=== PATIENT | female | born 1940 | race Caucasian/White ===

== ENCOUNTER 2016-11-16 15:48 | Inpatient (IN) | payer OTHER ==
--- NOTE | ~2016-11-16 | HP ---
History And Physical [address] [place]. [address] NAME: CAYETANO COY : 42 STATUS : ADM IN [facility]#: [id number] AGE: 76 ADM/REG DATE : 11/16/16 MR#: [id number] REPORT SERV DATE: 11/17/16 DICTATED BY: DORIS GARCIA DATE: 11/16/16 REPORT STATUS : Draft TRANSCRIBED BY: SARAN DATE: 11/16/16 DATE OF ADMISSION: 11/16/2016 CHIEF COMPLAINT: Weakness getting worse over the last three weeks, and she fell three times and confusion, but it is not bad as last time and she was here with hypercapnic respiratory failure. HISTORY OF PRESENT ILLNESS: This is a 76-year-old female patient who does have severe COPD with oxygen dependent, had experience worsening weakness and balance. She fell three times last week and family noticed that she has been having balance issue and getting weaker and she does not want to eat for the last couple of days and they brought the patient in the emergency room to get evaluated. She was evaluated in the emergency room with ABG showed pH of 7.25, pCO2 was 155.7, and PO2 was 86.2. Bicarb was 66.7. She was put on the BiPAP and Hospitalist Service was called for inpatient care. She is currently on BiPAP, and she is alert, awake. She is talking through the BiPAP mask and the patient has and daughter, who is very supportive at the bedside. There is no cough or fevers. No any acute illness noted. She still smokes about one and half pack and two pack a day and she is to drink daily wine at night. The last drink was noted to be about a week ago. The patient does not use any scheduled inhaler. She uses nebulizer as needed, but she does not use the nebulizer that much either. 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 REVIEW OF SYSTEMS: All systems reviewed and negative. PAST MEDICAL HISTORY: 1. COPD. 2. Cor pulmonale. 3. Tobacco abuse. 4. Depression. 5. Hypertension. 6. Hyperlipidemia. PAST SURGICAL HISTORY: She had a right foot surgery. MEDICATIONS AT HOME: 1. DuoNeb supposed to use it, but she refused it. 2. ProAir as needed. History And Physical [address] [place]. [address] NAME: CAYETANO COY : 42 STATUS : ADM IN [facility]#: [id number] AGE: 76 ADM/REG DATE : 11/16/16 MR#: [id number] REPORT SERV DATE: 11/17/16 DICTATED BY: DORIS GARCIA DATE: 11/16/16 REPORT STATUS : Draft TRANSCRIBED BY: MODL DATE: 11/16/16 3. Coreg 25 mg twice a day. 4. Celexa 40 mg once a day. 5. Advil 400 mg six hours as needed. 6. Imodium 2 mg once a day. 7. Prednisone 20 mg once a day as needed for short of breath. 8. Artificial Tears. ALLERGIES: NONE. SOCIAL HISTORY: She lives with her . She does not work. She is a lifelong smoker. She uses a glass of wine every night. Denies any drug use. She goes to her computer and playing words game with her friends and that is very big eli for her life. She does not have any walking aids. She has no problem with it. PHYSICAL EXAMINATION: VITAL SIGNS: Blood pressure is 142/62, pulse is 87, temperature is 97.7, respiratory rate is 20, currently she is on BiPAP. GENERAL APPEARANCE: She is on BiPAP. She is taking through the BiPAP. She is alert and awake. She is following commands. HEENT: Pupils are equal and her eyes are very congested. CHEST: Has a very decreased aeration. She does have a barrel chest. Has a tight ring sound, even has crackles on both bases. CARDIOVASCULAR: Cannot hear heart sound due to the BiPAP sound. Has had regular rhythm and rate though. ABDOMEN: Bowel sounds are present, soft. EXTREMITIES: She has a purple tips of the toes on the right side, but pulses are palpable, it is weak. LABORATORY DATA: Laboratory showed sodium of 143, potassium 4.5, BUN 15, creatinine 0.46. WBC 8.4, hemoglobin 11.9, hematocrit 41.6, platelets 141, MCV was 111.8, BNP was 298.6. Chest x-ray showed some vascular congestion on both lower lobe. Electrocardiogram showed normal sinus rhythm. ASSESSMENT AND PLAN: 1. Acute on chronic hypercapnic respiratory failure. 2. Chronic obstructive pulmonary disease exacerbation. 3. Acute on chronic cor pulmonale. 4. Tobacco abuse. 5. Alcohol abuse. The patient will be admitted to hospital on continuous BiPAP. Currently, we do not have any IMCU bed availability. The patient's family is willing to stay with her to assist her BiPAP use all night. I explained the patient that she needs to be on a BiPAP at least 24 hours continuously, and she agrees that she will cooperate the nursing care. History And Physical [address] [address] NAME: CAYETANO COY : 42 STATUS : ADM IN PAT#: [id number] AGE: 76 ADM/REG DATE : 11/16/16 MR#: [id number] REPORT SERV DATE: 11/17/16 DICTATED BY: DORIS GARCIA DATE: 11/16/16 REPORT STATUS : Draft TRANSCRIBED BY: SARAN DATE: 11/16/16 We are going to put her on the low-dose Bumex drip and an IV steroid, bronchodilator, continuous BiPAP will be the most important treatment for her hypercapnic respiratory failure. The patient is DNR and DNI and it is confirmed with the patient and the and the daughter. EKL/MODL Doris Garcia M.D. / [id number] CC: Martina Barahona M.D.
--- NOTE | ~2016-11-16 | DS ---
Discharge Summary [id number] [place]. [address] NAME: CAYETANO COY : 42 STATUS : DIS IN PAT#: [id number] AGE: 76 ADM/REG DATE : 11/16/16 MR#: [id number] REPORT SERV DATE: 11/21/16 DICTATED BY: SARABJIT BALBUENA DATE: 11/20/16 REPORT STATUS : Draft TRANSCRIBED BY: SARAN DATE: 11/20/16 ADMISSION DATE: 11/16/2016 DISCHARGE DATE: 11/20/2016 CONSULTING PHYSICIAN: Vannessa Vee M.D., for Pulmonary. PROCEDURES DONE: 1. On 11/17/2016 chest x-ray: No acute process. No change in cardiomegaly. 2. Chest x-ray, 11/16/2016: Cardiomegaly stable. Lungs clear. REASON FOR ADMISSION: Increasing weakness with confusion. HISTORY OF HOSPITAL STAY: A 76-year-old white female with past medical history of COPD, cor pulmonale, depression, hypertension, hyperlipidemia, tobacco abuse, presenting with weakness, and increasing confusion. The patient was admitted for further evaluation and treatment of increasing weakness and confusion. The patient was found to have a pCO2 of 155.7. In addition, her PaO2 was 86.2. The patient is having encephalopathy secondary to acute on chronic hypercapnic respiratory failure secondary to COPD exacerbation. The patient was immediately put in BiPAP and IV steroids and breathing treatments and was sent to the IMCU. Pulmonary was consulted for further evaluation of her acute on chronic hypercapnic respiratory failure. The patient was initially put on BiPAP. Pulmonary recommended continue BiPAP until her mental status improves which will be indicated by her baseline pCO2. More importantly, the patient is very noncompliant regarding her treatment at home as well as continuing to smoke. Pulmonary recommended palliative care versus hospice. Unfortunately, the family members were not available at that time. I personally discussed with the regarding palliative and hospice care. The patient will continue to smoke despite efforts of convincing the patient not to. Eventually, the and the patient have agreed that the best option is to go for hospice/palliative care since the patient will smoke anyway. The requested [facility]. DISPOSITION: The patient is feeling fine. No complaints. The patient will be referred to [facility]. ACTIVITY: As tolerated. DIET: Regular. INSTRUCTION UPON DISCHARGE: None. The patient will be followed by [facility]. MEDICATIONS UPON DISCHARGE: Management as per [facility]. DIAGNOSES UPON DISCHARGE: 1. Weakness and confusion secondary to acute on chronic hypercapnic respiratory failure. 2. Acute on chronic hypercapnic respiratory failure. 3. Chronic obstructive pulmonary disease. 4. Acute on chronic cor pulmonale. Discharge Summary [address] [address] NAME: CAYETANO COY : 42 STATUS : DIS IN PAT#: [id number] AGE: 76 ADM/REG DATE : 11/16/16 MR#: [id number] REPORT SERV DATE: 11/21/16 DICTATED BY: SARABJIT BALBUENA DATE: 11/20/16 REPORT STATUS : Draft TRANSCRIBED BY: SARAN DATE: 11/20/16 5. Tobacco abuse. FBMarie/SARAN Sarabjit Balbuena MD / [id number] CC: MD Yohan Bonds MD
--- NOTE | ~2016-11-16 | CN ---
Consultation Report [id number]. [address] NAME: CAYETANO COY : 42 STATUS : ADM IN [facility]#: [id number] AGE: 76 ADM/REG DATE : 11/16/16 MR#: [id number] REPORT SERV DATE: 11/17/16 DICTATED BY: VANNESSA FERRER DATE: 11/17/16 REPORT STATUS : Draft TRANSCRIBED BY: MODL DATE: 11/17/16 PULMONARY CONSULTATION DATE OF CONSULTATION: 11/17/2016 REASON FOR CONSULTATION: Respiratory failure requiring BiPAP. HISTORY OF PRESENT ILLNESS: Note: History is obtained per available medical record and the RN at the patient's bedside due to the patient being sedated and on BiPAP. Ms. Coy is a 76-year-old white female smoker with oxygen-dependent COPD and cor pulmonale who was admitted with hypercapnic/hypoxemic respiratory failure. She remains hypercapnic and hypoxemic despite BiPAP, systemic and inhaled steroids and bronchodilators, so Pulmonary was consulted for assistance. Per the admission history and physical, the patient has been suffering from increasing weakness over the last three weeks with associated falls and confusion. There is no documentation of cough, fevers, or other acute illness prior to admission. Upon presentation to the emergency room, she had an arterial blood gas that showed a pH of 7.25, pCO2 of 155, and a pPO2 of 86.2. PAST MEDICAL HISTORY: 1. COPD with chronic hypercapnic/hypoxic respiratory failure. 2. Smoking/tobacco addiction. 3. Cor pulmonale. 4. Anxiety/depression. 5. Hypertension. 6. Hyperlipidemia. 7. Previous foot surgery. FAMILY HISTORY: Smoker mother had COPD. Smoker father had COPD. One sister had asthma. SOCIAL HISTORY: Ms. Coy has been a smoker for most of her life. She currently smokes one and a half to two packs of cigarettes per day. She drinks wine regularly. She is and has one daughter. No further information is available regarding her social history. MEDICATIONS: Outpatient and inpatient medications were reviewed and are the as documented in the record. Per the available information, she was to be on DuoNeb but refused it. ALLERGIES: NO DOCUMENTED MEDICATION ALLERGIES. REVIEW OF SYSTEMS: Unobtainable. Consultation Report [id number] [facility] [address]. [address] NAME: CAYETANO COY : 42 STATUS : ADM IN PAT#: [id number] AGE: 76 ADM/REG DATE : 11/16/16 MR#: [id number] REPORT SERV DATE: 11/17/16 DICTATED BY: VANNESSA FERRER DATE: 11/17/16 REPORT STATUS : Draft TRANSCRIBED BY: SARAN DATE: 11/17/16 PHYSICAL EXAMINATION: VITAL SIGNS: Temperature 99.1 degrees, heart rate 92, blood pressure 123/62, respiratory rate 20 to 25, and oxygen saturation 92% on BiPAP 18/5 with a rate of 18 and FiO2 of 45%. GENERAL: The patient is a frail-appearing white female. She is sleeping/sedated. She awakens to verbal stimuli, but does not respond appropriately to questioning. HEENT: Normocephalic. Atraumatic. There is no scleral icterus. The conjunctivae are clear. The oropharynx appears to be dry, but this examination was done through the BiPAP mask. NECK: Supple. No lymphadenopathy was appreciated. LUNGS: Diminished breath sounds throughout. There are no crackles, wheezes, or rhonchi. HEART: Distant sounds. Regular rate and rhythm. ABDOMEN: Soft. Nontender. Nondistended. There are normal bowel sounds in all four quadrants. BILATERAL EXTREMITIES: No clubbing, cyanosis, or edema was noted. NEUROLOGICAL: A very limited exam was conducted and no abnormalities were appreciated. SKIN: No rashes were noted. LABORATORY RESULTS: The labs were reviewed and are as documented in the record. Notable labs include a white blood cell count of 6.1. Arterial blood gas done on admission is as documented above. Subsequent arterial blood gas revealed a pH of 7.41, pCO2 of 90, and pO2 of 53 on 35% O2 and BiPAP at 18/5. The third arterial blood gas revealed a pH of 7.47, pCO2 of 76, and pO2 of 50 on 35% O2 and BiPAP of 18/5. IMAGING: The chest x-ray done this admission revealed cardiomegaly. No infiltrates, atelectasis, or effusions were noted. ASSESSMENT AND PLAN: Ms. Coy is a 76-year-old white female smoker with chronic respiratory failure secondary to chronic obstructive pulmonary disease. Her pCO2 is improved since she has been initiated on BiPAP. Per the available information and the arterial blood gases as noted above, her baseline pCO2 is approximately 90. She has achieved this. She remains hypoxic, but is on 45% supplemental oxygen only. Recommend continue bronchodilators. We would continue systemic steroids at the current dose of 60 mg IV q.12, but this can be weaned relatively quickly as the patient's lung exam did not reveal any wheezing. Recommend continuing nebulized steroids - she is on budesonide 1 mg via nebulization twice daily. Hold Diamox-per the available information, she received 1 dose. Consultation Report [id number] [facility] [place]. [address] NAME: CAYETANO COY : 42 STATUS : ADM IN PAT#: [id number] AGE: 76 ADM/REG DATE : 11/16/16 MR#: [id number] REPORT SERV DATE: 11/17/16 DICTATED BY: VANNESSA FERRER DATE: 11/17/16 REPORT STATUS : Draft TRANSCRIBED BY: MODL DATE: 11/17/16 She could come off the BiPAP once her current sedation has worn off. She appears to be at her baseline pCO2. She should continue on BiPAP intermittently as needed an overnight. As an outpatient, she likely would benefit from a trilogy if she would comply. Overall, her prognosis is poor due to her underlying COPD and previous episodes of hypercapnic respiratory failure at her baseline pCO2 of approximately 90. I discussed this with Dr. Jose Barahona, in her primary patient physician this admission. I agree with his plan for possible palliative care versus hospice if the patient and her family agree. Thank you very much for this consultation. PS/MODL Vannessa Ferrer M.D. / [id number] CC: Amaris Hall MD
[2016-11-16 13:35] LABS: BASOPHILS 0.2 %; BASOPHILS ABSOLUTE 0.02 10/3/uL (0.0-0.16); EOSINOPHILS 0.5 %; EOSINOPHILS ABSOLUTE 0.04 10/3/uL (0.0-0.53); IMMATURE GRANULOCYTES 0.1 %; IMMATURE GRANULOCYTES ABSOLUTE 0.01 10/3/uL (0.0-0.11); LYMPHOCYTES 11.4 %; LYMPHOCYTES ABSOLUTE 0.96 10/3/uL (0.67-4.30); MEAN PLATELET VOLUME 11.1 fL (9.2-13.0); MONOCYTES 6.3 %; MONOCYTES ABSOLUTE 0.53 10/3/uL (0.21-1.20); NEUTROPHILS 81.5 %; NEUTROPHILS ABSOLUTE 6.83 10/3/uL (2.02-8.40); PLATELET COUNT 141 10/3/uL (150-400); RBC DISTRIBUTION WIDTH 12.5 % (12.0-16.0); WHITE BLOOD CELLS 8.4 10/3/uL (4.5-10.5)
[2016-11-16 13:36] LABS: HEMATOCRIT 41.6 % (36.0-48.0); HEMOGLOBIN 11.9 g/dL (12.0-16.0); MANUAL DIFF NO %; MEAN CORPUS HGB CONC 28.6 g/dL (32.0-36.0); MEAN CORPUSCULAR VOLUME 111.8 fL (80-100); RED CELL COUNT 3.72 10/6/uL (4.0-5.6)
[2016-11-16 13:51] LABS: MACROCYTES 1+ (5-10/OIF) (0-5/OIF); PLATELET ESTIMATE SLT DEC (ADEQUATE)
[2016-11-16 13:52] LABS: ALBUMIN 3.4 G/DL (3.5-5.0); ALKALINE PHOSPHATASE 68 U/L (45-117); BUN (BLOOD UREA NITROGEN) 15 MG/DL (6-23); CALCIUM, SERUM 9.2 MG/DL (8.5-10.4); CHLORIDE, SERUM 90 MMOL/L (96-112); CREATININE 0.46 MG/DL (0.55-1.02); GFR AFRICAN AMERICAN 113 ML/MIN (>=60); GFR NON AFRICAN AMERICAN 97 ML/MIN (>=60); GLOBULIN 3.5 G/DL (2.5-4.1); GLUCOSE, SERUM 141 MG/DL (60-99); POTASSIUM, SERUM 4.5 MMOL/L (3.5-5.3); SGOT(AST) 11 U/L (5-40); SGPT(ALT) 19 U/L (5-65); SODIUM, SERUM 143 MMOL/L (135-148); TOTAL BILIRUBIN 0.3 MG/DL (0-1.2); TOTAL PROTEIN 6.9 G/DL (6.0-8.5); TROPONIN I <0.02 NG/ML (<0.05)
[2016-11-16 13:55] LABS: CO2 (CARBON DIOXIDE) > 45 MMOL/L (24-34)
[~2016-11-16 15:48] MED LIST: ADVIL PO; ASPERCREME TOP; CELEXA40 MG PO; CITRACAL PO; COREG12 PO; COREG25 PO; COREG6 PO; DITROPAN XL10 MG PO; DUONEB INH; IMOD PO; LIQUID TEARS OPH; MELA3 PO; MURO1285% OPH; MURO5OOIN OPH; NEBULIZER SOLUTION INH; P10; P10 PO; P20 PO; PROAIR HFA INH; SPIRIVA INH; SYMBICORT 160/41 INH INH; TEARS PURE OPH; VITAMIN D31000 UNIT PO; VYTORIN 10/10 T1 TAB PO; ZOCOR40 PO
[2016-11-16 15:54] LABS: LACTATE 0.8 MMOL/L (0.3-2.4)
[2016-11-16 18:56] LABS: ASCORBIC ACID (UR NOT ORDER) NEG (NEG); BILIRUBIN, URINE NEGATIVE (NEG); ER URINALYSIS TAT 0 Hrs 07 Mins; KETONE, URINE TRACE MG/DL (NEG); LEUKOCYTE ESTERASE(NOT OR TRACE (NEG); NITRITE (URINE) NEG (NEG); WBC (NOT ORDERED) (RFLEX) 11 (0-5)
[2016-11-16 18:56] LABS: ALLENS TEST Pos; BE (BASE EXCESS) 25.4 MEQ/L (0 +/- 2.5); BIPAP 18/5 cm.H2O; DEVICE BIPAP; HCO3 (ACTUAL BICARBONATE) 55.3 MEQ/L (23-27); HEMOBLOGIN CONTENT 12.1 G/DL (12-16); INSTRUMENT SERIAL # 8087; METHEMOGLOBIN 0.2 % (0-3); O2 CONTENT 14.8 VOL% (18-24); OPERATOR ID 14335; PCO2 (CO2 TENSION) 90 MMHG (35-45); PO2 (O2 TENSION) 53 MMHG (79-93); SAMPLE Arterial; pH 7.41 (7.37-7.43)
[2016-11-17 05:18] LABS: ALLENS TEST Pos; BE (BASE EXCESS) 25.4 MEQ/L (0 +/- 2.5); BIPAP 18/5 cm.H2O; CARBOXYHEMOGLOBIN 1.5 % (0-3); HEMOBLOGIN CONTENT 12.8 G/DL (12-16); INSTRUMENT SERIAL # 8083; METHEMOGLOBIN 0.1 % (0-3); O2 CONTENT 15.6 VOL% (18-24); OPERATOR ID 33214; PCO2 (CO2 TENSION) 76 MMHG (35-45); PO2 (O2 TENSION) 50 MMHG (79-93); SAMPLE Arterial; pH 7.47 (7.37-7.43)
[2016-11-17 05:47] LABS: BASOPHILS 0 %; EOSINOPHILS 0 %; HEMATOCRIT 38.8 % (36.0-48.0); HEMOGLOBIN 12.1 g/dL (12.0-16.0); IMMATURE GRANULOCYTES 0.2 %; IMMATURE GRANULOCYTES ABSOLUTE 0.01 10/3/uL (0.0-0.11); LYMPHOCYTES 11.7 %; LYMPHOCYTES ABSOLUTE 0.71 10/3/uL (0.67-4.30); MANUAL DIFF NO %; MEAN CORPUS HGB CONC 31.2 g/dL (32.0-36.0); MEAN CORPUSCULAR HEMOGLOB 32.6 pg (26.0-34.0); MEAN CORPUSCULAR VOLUME 104.6 fL (80-100); MEAN PLATELET VOLUME 11.9 fL (9.2-13.0); MONOCYTES 3.9 %; MONOCYTES ABSOLUTE 0.24 10/3/uL (0.21-1.20); NEUTROPHILS 84.2 %; NEUTROPHILS ABSOLUTE 5.12 10/3/uL (2.02-8.40); PLATELET COUNT 149 10/3/uL (150-400); RBC DISTRIBUTION WIDTH 12.3 % (12.0-16.0); RED CELL COUNT 3.71 10/6/uL (4.0-5.6); WHITE BLOOD CELLS 6.1 10/3/uL (4.5-10.5)
[2016-11-17 06:23] LABS: BUN (BLOOD UREA NITROGEN) 16 MG/DL (6-23); CALCIUM, SERUM 9.2 MG/DL (8.5-10.4); CHLORIDE, SERUM 83 MMOL/L (96-112); CREATININE 0.68 MG/DL (0.55-1.02); GFR AFRICAN AMERICAN 99 ML/MIN (>=60); GFR NON AFRICAN AMERICAN 86 ML/MIN (>=60); GLUCOSE, SERUM 129 MG/DL (60-99); SODIUM, SERUM 137 MMOL/L (135-148)
[2016-11-17 06:25] LABS: CO2 (CARBON DIOXIDE) > 45 MMOL/L (24-34); FOLATE 16.2 NG/ML (>5.2); ULTRASENSITIVE TSH 0.653 MCIU/ML (0.358-3.740)
[2016-11-18 05:31] LABS: BUN (BLOOD UREA NITROGEN) 38 MG/DL (6-23); CALCIUM, SERUM 9.2 MG/DL (8.5-10.4); CHLORIDE, SERUM 76 MMOL/L (96-112); CO2 (CARBON DIOXIDE) 43 MMOL/L (24-34); CREATININE 1.11 MG/DL (0.55-1.02); GFR AFRICAN AMERICAN 56 ML/MIN (>=60); GFR NON AFRICAN AMERICAN 49 ML/MIN (>=60); GLUCOSE, SERUM 122 MG/DL (60-99); POTASSIUM, SERUM 3.1 MMOL/L (3.5-5.3); SODIUM, SERUM 134 MMOL/L (135-148)
[2016-11-18 12:53] LABS: ALLENS TEST Pos; BE (BASE EXCESS) 23.6 MEQ/L (0 +/- 2.5); CARBOXYHEMOGLOBIN 0.5 % (0-3); DEVICE VM; HEMOBLOGIN CONTENT 14.9 G/DL (12-16); INSTRUMENT SERIAL # 8083; METHEMOGLOBIN 0.2 % (0-3); O2 CONTENT 18.4 VOL% (18-24); PCO2 (CO2 TENSION) 63 MMHG (35-45); PO2 (O2 TENSION) 55 MMHG (79-93); SAMPLE Arterial; pH 7.53 (7.37-7.43)
[2016-11-19 04:42] LABS: BASOPHILS 0 %; EOSINOPHILS 0 %; HEMATOCRIT 44.3 % (36.0-48.0); HEMOGLOBIN 14.3 g/dL (12.0-16.0); IMMATURE GRANULOCYTES 0.2 %; IMMATURE GRANULOCYTES ABSOLUTE 0.02 10/3/uL (0.0-0.11); LYMPHOCYTES 11.1 %; LYMPHOCYTES ABSOLUTE 1.02 10/3/uL (0.67-4.30); MANUAL DIFF NO %; MEAN CORPUS HGB CONC 32.3 g/dL (32.0-36.0); MEAN CORPUSCULAR VOLUME 99.1 fL (80-100); MEAN PLATELET VOLUME 11.8 fL (9.2-13.0); MONOCYTES 6.5 %; NEUTROPHILS 82.2 %; NEUTROPHILS ABSOLUTE 7.55 10/3/uL (2.02-8.40); PLATELET COUNT 193 10/3/uL (150-400); RBC DISTRIBUTION WIDTH 12.3 % (12.0-16.0); RED CELL COUNT 4.47 10/6/uL (4.0-5.6); WHITE BLOOD CELLS 9.2 10/3/uL (4.5-10.5)
[2016-11-19 05:12] LABS: ALBUMIN 3.8 G/DL (3.5-5.0); ALKALINE PHOSPHATASE 69 U/L (45-117); SGOT(AST) 11 U/L (5-40); SGPT(ALT) 14 U/L (5-65); TOTAL BILIRUBIN 0.6 MG/DL (0-1.2); TOTAL PROTEIN 7.6 G/DL (6.0-8.5)
[2016-11-19 05:16] LABS: DIRECT BILIRUBIN < 0.1 MG/DL (0.0-0.4); INDIRECT BILIRUBIN(NOT ORDER) 0.5 MG/DL (0.1-0.9)
[2016-11-19 06:46] LABS: CALCIUM, SERUM 9.1 MG/DL (8.5-10.4); CHLORIDE, SERUM 81 MMOL/L (96-112); GFR AFRICAN AMERICAN 26 ML/MIN (>=60); GFR NON AFRICAN AMERICAN 22 ML/MIN (>=60); GLUCOSE, SERUM 121 MG/DL (60-99); POTASSIUM, SERUM 3.7 MMOL/L (3.5-5.3); SODIUM, SERUM 132 MMOL/L (135-148)
[2016-11-19 06:54] LABS: BUN (BLOOD UREA NITROGEN) 72 MG/DL (6-23); CO2 (CARBON DIOXIDE) 42 MMOL/L (24-34); CREATININE 2.12 MG/DL (0.55-1.02)
== END 2016-11-20 16:32 | disposition hospice, home (50) | DRG 189 ==
LOC: ER 15:48 → IMCU 19:47
PROVIDERS: Emergency Medicine; Hospitalist; Internal Medicine; Nurse Practitioner
DX: J96.22 Acute and chronic respiratory failure with hypercapnia (principal); I26.09 Other pulmonary embolism with acute cor pulmonale; I50.33 Acute on chronic diastolic (congestive) heart failure; J44.1 Chronic obstructive pulmonary disease with (acute) exacerbation; F10.10 Alcohol abuse, uncomplicated; F17.210 Nicotine dependence, cigarettes, uncomplicated; F41.9 Anxiety disorder, unspecified; F32.9 Major depressive disorder, single episode, unspecified; Z66 Do not resuscitate
CPT/HCPCS: 36600; 71010; 80048; 80053; 80076; 81001; 82330; 82607; 82746; 82803; 82805; 82947; 83605; 83735; 83880; 84100; 84132; 84295; 84443; 84484; 85014; 85025; 87040; 87641; 93005; 94640; 94660; 96365; 96375; 99291; A9270-GY; J0360; J1120; J1956; J2930